=== PATIENT | female | born 1980 | race Caucasian/White ===

== ENCOUNTER 2022-04-23 14:46 | Outpatient (REF) | payer BC, SELFPAY ==
[2022-04-23 17:15] LABS: Hemoglobin A1C 5.6 % (<5.7)
[2022-04-23 17:17] LABS: ALT 35 U/L (14-59); AST 22 U/L (15-37); Albumin 3.5 g/dL (3.4-5.0); Alkaline Phosphatase 71 U/L (46-116); Anion Gap 8.5 mmol/L (3-11); BUN 15 mg/dL (7-18); Bilirubin, Total 0.5 mg/dL (0.2-1.0); CO2 26.5 mmol/L (21.0-32.0); CREATININE 0.9 mg/dL (0.55-1.02); Calcium 9.2 mg/dL (8.5-10.1); Calculated LDL 139 mg/dL (<100); Chloride 104 mmol/L (98-107); Cholesterol 237 mg/dL (<200); Estimated GFR 81.86 (mL/min/1.73m2); Glucose 100 mg/dL (74-106); HDL Cholesterol 70 mg/dL (40-60); Potassium 4.2 mmol/L (3.5-5.1); Sodium 139 mmol/L (136-145); Triglyceride 143 mg/dL (<150)
== END 2022-04-23 14:47 | disposition home or self-care (01) ==
LOC: NCHCN 14:46
PROVIDERS: Visit Provider Nurse Practitioner Family
DX: E28.2 Polycystic ovarian syndrome (principal); R73.9 Hyperglycemia, unspecified; Z13.220 Encounter for screening for lipoid disorders
CPT/HCPCS: 80053; 80061; 83036

== ENCOUNTER 2022-06-22 15:00 | Outpatient (REF) | payer BC, SELFPAY ==
[2022-06-22 15:38] LABS: ALT 62 U/L (14-59); AST 33 U/L (15-37); Albumin 3.7 g/dL (3.4-5.0); Alkaline Phosphatase 52 U/L (46-116); Anion Gap 11.5 mmol/L (3-11); BUN 18 mg/dL (7-18); Bilirubin, Total 0.8 mg/dL (0.2-1.0); CO2 22.5 mmol/L (21.0-32.0); CREATININE 0.9 mg/dL (0.55-1.02); Calcium 9.4 mg/dL (8.5-10.1); Chloride 100 mmol/L (98-107); Estimated GFR 81.86 (mL/min/1.73m2); Glucose 88 mg/dL (74-106); Sodium 134 mmol/L (136-145); Total Protein 7.4 g/dL (6.4-8.2)
[2022-06-22 16:04] LABS: Hemoglobin A1C 5.5 % (<5.7)
== END 2022-06-22 15:01 | disposition home or self-care (01) ==
LOC: NCHCN 15:00
PROVIDERS: Visit Provider Nurse Practitioner Family
DX: R73.01 Impaired fasting glucose (principal)
CPT/HCPCS: 80053; 83036

== ENCOUNTER 2022-09-21 14:56 | Outpatient (REF) | payer OTHER, SELFPAY ==
[2022-09-21 15:40] LABS: Anion Gap 10.2 mmol/L (3-11); BUN 9 mg/dL (7-18); CO2 23.8 mmol/L (21.0-32.0); Calcium 9.3 mg/dL (8.5-10.1); Chloride 103 mmol/L (98-107); Estimated GFR 72.13 (mL/min/1.73m2); Glucose 90 mg/dL (74-106); Potassium 4.1 mmol/L (3.5-5.1); Sodium 137 mmol/L (136-145)
[2022-09-21 15:47] LABS: Hemoglobin A1C 5.1 % (<5.7)
== END 2022-09-21 14:57 | disposition home or self-care (01) ==
LOC: NCHCN 14:56
PROVIDERS: Visit Provider Nurse Practitioner Family
DX: E88.81 Metabolic syndrome and other insulin resistance (principal)
CPT/HCPCS: 80048; 83036

== ENCOUNTER 2023-03-22 14:29 | Outpatient (REF) | payer OTHER, SELFPAY ==
[2023-03-22 19:44] LABS: Hemoglobin A1C 5.1 % (<5.7)
[2023-03-22 19:47] LABS: ALT 25 U/L (14-59); AST 19 U/L (15-37); Albumin 3.6 g/dL (3.4-5.0); Alkaline Phosphatase 58 U/L (46-116); Anion Gap 10.9 mmol/L (3-11); BUN 9 mg/dL (7-18); Bilirubin, Total 0.9 mg/dL (0.2-1.0); CO2 24.1 mmol/L (21.0-32.0); CREATININE 0.9 mg/dL (0.55-1.02); Calcium 9.3 mg/dL (8.5-10.1); Chloride 103 mmol/L (98-107); Estimated GFR 81.35 (mL/min/1.73m2); Glucose 85 mg/dL (74-106); Potassium 4.1 mmol/L (3.5-5.1); Sodium 138 mmol/L (136-145); TSH (W/Ref FT4) 1.88 uIU/mL (0.36-3.74); Total Protein 7.1 g/dL (6.4-8.2)
== END 2023-03-22 14:30 | disposition home or self-care (01) ==
LOC: NCHCN 14:29
PROVIDERS: Visit Provider Nurse Practitioner Family
DX: E88.81 Metabolic syndrome and other insulin resistance (principal); R73.01 Impaired fasting glucose; R94.5 Abnormal results of liver function studies; E78.00 Pure hypercholesterolemia, unspecified
CPT/HCPCS: 80053; 83036; 84443

== ENCOUNTER 2023-05-31 16:14 | Outpatient (REF) | payer OTHER, SELFPAY ==
[2023-05-31 15:09] LABS: HCT 40.5 % (36.0-46.0); HGB 13.6 g/dL (11.2-15.7); MCH 29.8 pg (27.0-33.0); MCHC 33.6 % (32.0-36.0); MCV 89 fL (80-95); MPV 10.8 fL (8.0-11.0); Platelet Count 293 10^3/uL (130-400); RBC 4.56 10^6/uL (3.93-5.22); RDW 12.2 % (11.7-14.6); WBC 6.37 10^3/uL (4.4-10.8)
[2023-05-31 15:28] LABS: Anion Gap 9.5 mmol/L (3-11); BUN 12 mg/dL (7-18); CO2 25.5 mmol/L (21.0-32.0); CREATININE 0.8 mg/dL (0.55-1.02); Calcium 9.4 mg/dL (8.5-10.1); Chloride 104 mmol/L (98-107); Ferritin 143 ng/mL (8-252); Glucose 86 mg/dL (74-106); Potassium 4.5 mmol/L (3.5-5.1); Sodium 139 mmol/L (136-145)
[2023-05-31 15:46] LABS: Iron 108 ug/dL (50-170); Total Iron Binding Capacity 363 ug/dL (250-450); Transferrin Sat 30 % (15-50)
[2023-06-11 10:57] LABS: Testosterone, Free 0.14 ng/dL (<0.13-0.98); Testosterone, Total 18 ng/dL (8-60)
== END 2023-05-31 16:15 | disposition home or self-care (01) ==
LOC: NCHCN 16:14
PROVIDERS: Visit Provider Nurse Practitioner Family
DX: E28.2 Polycystic ovarian syndrome (principal); I95.9 Hypotension, unspecified
CPT/HCPCS: 80048; 84402; 84403; 85027; 82728; 83540; 83550

== ENCOUNTER 2023-07-19 11:14 | Outpatient (REF) | payer OTHER, SELFPAY ==
--- NOTE | 2023-07-19 11:00 | PAPFT_PTH ---
PATIENT: Alexis Booth LOC: [facility] U#:[id number] AGE/SX: 43/F ROOM: RE07/19/[address]: Ya Sumner MD : 1980 BED: DIS: 07/19/2023 SPEC #: [id number] RECD: 07/19/23 12:53 STATUS: JUANITA REQ #: [id number] ALLYSON: 07/19/23 11:[address]: Ya Sumner DEPT: [facility] Cytology RECD BY: Jovanna Jack ENTERED: 07/19/23 12:53 SP TYPE: PAPFT OTHR DR: CHATA DOSHI Tissues: 1 - CX/ENDOCX FOR PAP SMEARS Procedures: PAP THIN PREP/UVM Screening HPV DNA PROBE Comments: [id number]
== END 2023-07-19 11:15 | disposition home or self-care (01) ==
LOC: LBN 11:14
PROVIDERS: PCP Nurse Practitioner Family; Visit Provider Obstetrics & Gynecology
DX: Z12.4 Encounter for screening for malignant neoplasm of cervix (principal)
CPT/HCPCS: 88142; 87624

== ENCOUNTER → 2023-09-16 01:18 | Outpatient (CLI) | payer OTHER, SELFPAY ==
--- OUTSIDE RECORDS SUMMARY | 2023-09-16 01:20 | XMS_ITS | Patient Health Record ---
Author Name Unknown [facility] Address [address] [place] [address] Support Name Relationship Address Phone OLENA WINTER Emergency Contact [address] [place] [address] REASON FOR REFERRAL No Information SOCIAL HISTORY Tobacco Use: Social History Observation Description Date Smoking Status WARNING: Information temporarily unavailable Sex Assigned At : Social History Observation Description Sex Assigned At Unknown SMOKING Question Answer Notes Are you a: nonsmoker PLAN OF TREATMENT No Information Insurance Providers Payer Name Payer Address Payer Phone Subscriber Number Group Number Insured Name Patient Relationship to Insured Coverage Start Date Coverage End Date [facility] [address] [place] [address] [id number] WENDY WINTER Self - patient is the insured
--- NOTE | 2023-09-16 08:45 | DI.MAMMO_ITS ---
Exam(s) MAMMO SCREENING EXAM: MAMMO SCREENING CLINICAL HISTORY: screening, Z12.31 TECHNIQUE: Mammograms were interpreted according to the usual protocol including computer analysis w [employer] CAD system, tomosynthesis and C-view imaging. COMPARISON: None. Baseline examination. FINDINGS: The breasts are composed of heterogeneously dense fibroglandular densities, Breast Density category C . No suspicious masses or suspicious microcalcifications are seen. No skin thickening or abnormal axillary lymph nodes are seen. IMPRESSION: BI-RADS Category 1, Negative mammogram. Yearly screening mammography is recommended. Breast Density Category C, heterogeneously Dense. The mammogram demonstrates the patient's breast tissue is dense. Dense breast tissue is very common a nd is not abnormal but dense breast tissue can make it harder to find cancer on a mammogram. Also, de nse breast tissue may increase breast cancer risk. This information about the result of the mammogram report was provided to the patient to raise their awareness. Use this report when you speak with the patient about their risks for breast cancer, which includes their family history. At that time, you may recommend additional screening tests (Ultrasound or MRI) as they might be useful based on their r isk. A negative radiographic report should not delay biopsy if a dominant or clinically suspicious mass is present. Up to ten percent of cancers are not identified on mammography. A negative report may reinforce clinical impression. Adenosis and dense breasts may obscure an underlying neoplasm. False positive reports average 6 to 10%.
== END ==
PROVIDERS: PCP Nurse Practitioner Family; Visit Provider Obstetrics & Gynecology
DX: Z12.31 Encounter for screening mammogram for malignant neoplasm of breast (principal)
CPT/HCPCS: 77063; 77067

== ENCOUNTER 2024-02-07 11:14 | Outpatient (REF) | payer OTHER, SELFPAY ==
--- OUTSIDE RECORDS SUMMARY | 2024-02-07 11:16 | XMS_ITS | Patient Health Record ---
Author Name Unknown [facility] Address [address] [place] [address] Support Name Relationship Address Phone OLENA WINTER Emergency Contact [address] [place] [address] REASON FOR REFERRAL No Information PLAN OF TREATMENT No Information Insurance Providers Payer Name Payer Address Payer Phone Subscriber Number Group Number Insured Name Patient Relationship to Insured Coverage Start Date Coverage End Date [facility] [address] [place] [address] [id number] WENDY WINTER Self - patient is the insured
[2024-02-07 14:49] LABS: Abs Immature Grans 0.01 10^3/uL (0.0-0.06); Absolute Basophil Count 0.06 10^3/uL (0.0-0.2); Absolute Eosinophil Count 0.28 10^3/uL (0.0-0.7); Absolute Lymphocyte Count 2.41 10^3/uL (1.2-3.4); Absolute Monocyte Count 0.42 10^3/uL (0.1-0.8); Absolute Neutrophil Count 3.19 10^3/uL (1.2-6.7); Basophils % 0.9 %; Eosinophils % 4.4 %; HCT 39.6 % (36.0-46.0); HGB 13.5 g/dL (11.2-15.7); Immature Grans % 0.2 %; Lymphocytes % 37.8 %; MCH 30.5 pg (27.0-33.0); MCHC 34.1 % (32.0-36.0); MCV 90 fL (80-95); MPV 10.7 fL (8.0-11.0); Monocytes % 6.6 %; Neutrophils % 50.1 %; Platelet Count 242 10^3/uL (130-400); RBC 4.42 10^6/uL (3.93-5.22); RDW 12.2 % (11.7-14.6); RDW-SD 39.8 fL; WBC 6.37 10^3/uL (4.4-10.8)
[2024-02-07 15:04] LABS: Bilirubin Negative (Negative); Blood Negative (Negative); Clarity Clear (Clear); Glucose Negative (Negative); Ketones Negative (Negative); Leukocyte Esterase Negative (Negative); Nitrite Negative (Negative); Urobilinogen 0.2 mg/dL (Up to 0.2); pH 6.5 (5-8)
[2024-02-07 15:21] LABS: ALT 23 U/L (14-59); AST 19 U/L (15-37); Albumin 3.4 g/dL (3.4-5.0); Alkaline Phosphatase 45 U/L (46-116); Anion Gap 5.6 mmol/L (3-11); BUN 9 mg/dL (7-18); Bilirubin, Total 0.77 mg/dL (0.2-1.0); CO2 25.4 mmol/L (21.0-32.0); CREATININE 0.9 mg/dL (0.55-1.02); Calcium 8.5 mg/dL (8.5-10.1); Chloride 107 mmol/L (98-107); Estimated GFR 80.84 (mL/min/1.73m2); Glucose 88 mg/dL (74-106); Lipase 38 U/L (16-77); Potassium 4.2 mmol/L (3.5-5.1); Sodium 138 mmol/L (136-145); Total Protein 6.7 g/dL (6.4-8.2)
== END 2024-02-07 11:15 | disposition home or self-care (01) ==
LOC: NCHCN 11:14
PROVIDERS: PCP Nurse Practitioner Family; Visit Provider Nurse Practitioner Family
DX: R10.12 Left upper quadrant pain (principal); R10.32 Left lower quadrant pain
CPT/HCPCS: 80053; 83690; 81003; 85025

== ENCOUNTER 2025-02-18 08:46 | Emergency (ER) | payer OTHER, SELFPAY ==
[2025-02-18 08:55] VITALS: BP 117/59; PULSE 78; RESP 16; TEMP 36.6; O2SAT 100
[2025-02-18 09:15] LABS: Glucose Negative (Negative)
--- NOTE | 2025-02-18 09:15 | DI.CT_ITS ---
Exam(s) CT RENAL COLIC WO EXAM: CT RENAL COLIC WO CLINICAL HISTORY: left flank pain. TECHNIQUE: Imaging Protocol: Axial computed tomography images with coronal and sagittal reformatted images were created and reviewed. COMPARISON: No exams were available for comparison FINDINGS: ABDOMEN: Lung Bases: Normal where visualized. Liver: Normal density. No measurable mass. Gallbladder and biliary tract: There is a 2.3 cm gallstone. There is no biliary ductal dilatation. Pancreas: Normal density, no abnormal calcifications or inflammatory process. Spleen: Normal. Kidneys: Normal size, contour and axis.No nephrolithiasis or ureterolithiasis is identified. There is mild dilatation seen in the proximal left ureter. Mild inflammation is seen around the left kidney and ureter. This may represent a recently passed stone. Infection cannot be entirely excluded. No masses seen. Adrenal glands: No mass is seen. Lymph nodes: Within normal limits. Abdominal Aorta: Abdominal portion non-dilated. PELVIS: Bladder:Symmetric distention, no gross wall thickening. Bowel: No obstruction or bowel wall thickening. Appendix is unremarkable. Peritoneal cavity: There is a trace amount of fluid in the cul-de-sac which may be physiologic. No free air. Reproductive organs: Unremarkable as visualized. Bones: Within normal limits. Soft Tissues: Within normal limits. IMPRESSION: 1. No evidence of nephrolithiasis or ureterolithiasis. 2. Mild dilatation of the proximal left ureter. Mild inflammatory stranding seen around the left kidney and ureter. This may represent a recently passed stone. Infection cannot be entirely excluded. Please correlate clinically. 3. Cholelithiasis. RADIATION DOSE DELIVERED: 361.82mGy.cm Total DLP DATA REPOSITORY: All CT scans at this facility are submitted to the National Radiology Data Registry (NRDR) Dose Index Registry (DIR) with the [employer] (ACR). RADIATION OPTIMIZATION: All CT scans at this facility use at least one of these dose optimization techniques: automated exposure control; mA and/or kV adjustment per patient size (includes targeted exams where dose is matched to clinical indication); or iterative reconstruction.
[2025-02-18 09:28] LABS: C & S Indicated? Yes; RBC 0-2 HPF (0-2); WBC >50 HPF (0-5)
--- NOTE | 2025-02-18 10:01 | W.ED.GENAD ---
Discharge Plan Disposition Patient Disposition: Home Condition: Stable Discharge Details Clinical Impression: Acute pyelonephritis, Cholelithiasis Primary Care Provider: Keri Ulloa ED Provider: Antwan Campos Home Meds and New Rx's Prescriptions: New cefpodoxime 200 mg tablet 200 mg PO BID Qty: 27 0RF Rx Instructions: must administer with a meal/food Continued bupropion HCl 150 mg tablet extended release 24 hr 150 mg PO QAM desogestrel-ethinyl estradiol [Enskyce] 0.15-0.03 mg tablet 1 tab PO DAILY Mounjaro 5 mg/0.5 mL pen injector 5 mg subcut QWEEK naltrexone 50 mg tablet 50 mg PO DAILY Discontinued sulfamethoxazole-trimethoprim 400-80 mg tablet 1 tab PO BID Patient Comments: TAKE 1 TABLET BY MOUTH EVERY 12 HOURS FOR 5 DAYS Discharge Instructions Instructions: Urinary Tract Infection, Adult ED, Gallstones ED Additional Instructions: Please take full course of antibiotic as prescribed. Please drink plenty of fluids to stay hydrated and allow for plenty of rest. Please follow-up with your primary care physician. Please follow-up with general surgery regarding gallstones. Return to the emergency department immediately for any worsening or new concerning symptoms. Referrals: Lillie Tsai MD [ [facility] STAFF PHYSICIAN, Surgery] Keri Ulloa MD [Primary Care Provider, Medicine] Discharge Data Discharge Date/Time-TO BE ENTERED AT DEPARTURE: 02/18/25 11:24 HPI General Mode of arrival: ambulatory. Date/Time Provider Initiated Documentation: 02/18/25 08:53. Limitations to Documentation: no limitations. Information obtained by: patient. HPI Narrative: HISTORY OF PRESENT ILLNESS Female with history of kidney stones and pyelonephritis presenting with left flank pain. Symptoms of UTI began on 01/29/2025: cloudy, foul-smelling urine, painful urination. Urine test showed protein, leukocytes, blood. Prescribed antibiotic nitrofurantoin for 7 days, condition improved. Recurrence of symptoms over the weekend: stinky, fizzy urine, pain. Subsequent urine test showed leukocytes, no bacteria or protein. Started on Bactrim, taken 4 doses. Reports pressury feeling in front radiating to left, pain with deep breaths, nausea, dry heaving. Pain intensifies after urination. Tylenol and ibuprofen ineffective, took 600 mg ibuprofen this morning. No other medical problems. Past surgeries: 2 C-sections, tonsillectomy, lithotripsy. No vaginal discharge or bleeding. Current medications: bupropion 150 mg daily, naltrexone 25 mg, control, Mounjaro or Zepbound. Related Data Home Medications ?Medication ?Instructions ?Recorded ?Confirmed bupropion HCl 150 mg 24 hr tablet, 150 mg PO QAM 07/19/23 02/18/25 extended release desogestrel 0.15 mg-ethinyl 1 tab PO DAILY 07/19/23 02/18/25 estradiol 0.03 mg tablet (Enskyce) tirzepatide 5 mg/0.5 mL 5 mg subcut QWEEK 07/19/23 02/18/25 subcutaneous pen injector (Mounjaro) cefpodoxime 200 mg tablet 200 mg PO BID #27 tabs 02/18/25 naltrexone 50 mg tablet 50 mg PO DAILY 02/18/25 02/18/25 Previous Rx's ?Medication ?Instructions ?Recorded cefpodoxime 200 mg tablet 200 mg PO BID #27 tabs 02/18/25 Allergies Allergy/AdvReac Type Severity Reaction Status Date / Time amoxicillin Allergy Unknown rash Unverified 02/18/25 08:58 General Stated Complaint: FlankPain SHAKA: 3 Review of Systems All systems reviewed & are unremarkable except as noted in HPI and below Genitourinary Genitourinary: Reports as per HPI Exam Const General: cooperative and no acute distress [facility] Mouth: moist mucous membranes Eyes Conjunctivae: normal conjunctivae Sclera: normal sclerae Resp Auscultation: clear to auscultation bilaterally, no rales, no rhonchi and no wheezes Cardio Rate: regular rate and not tachycardic Rhythm: regular rhythm GI Palpation: soft, not firm, no guarding, no masses, not rigid and tender in the LUQ (flank) Skin General skin exam: no rashes or lesions noted Neuro General: patient alert, patient awake and tone normal Extrem General: no edema Course Vital Signs Vital signs: Vital Signs Temperature 36.6 C 02/18/25 08:55 Pulse 78 02/18/25 08:55 Respiratory Rate 16 02/18/25 08:55 Blood Pressure 117/59 L 02/18/25 08:55 Pulse Oximetry 100 02/18/25 08:55 Temperature 36.6 C 02/18/25 08:55 Temperature Source Tympanic 02/18/25 08:55 Pulse 78 02/18/25 08:55 Respiratory Rate 16 02/18/25 08:55 Blood Pressure 117/59 L 02/18/25 08:55 Blood Pressure Position Sitting 02/18/25 08:55 Pulse Oximetry 100 02/18/25 08:55 Oxygen Delivery Method Room Air 02/18/25 08:55 Oxygen Flow Rate 0 02/18/25 08:55 Pain Level 4 02/18/25 08:55 Lab/Test Results Lab/Test Results: 02/18/25 08:58 Urine - Reflex from Ua Urine Culture - Pending Laboratory Tests Range/Units 02/18/25 08:58 Urine Color (Yellow) Yellow Urine Clarity (Clear) Sl Cloudy Urine pH (5-8) 6.0 Ur Specific [place] (1.005-1.025) 1.015 Urine Protein (Neg-Trace) mg/dL 30 H Urine Ketones (Negative) mg/dL Negative Urine Blood (Negative) Small H Urine Nitrite (Negative) Positive H Urine Bilirubin (Negative) Negative Urine Urobilinogen (Up to 0.2) mg/dL 0.2 Ur Leukocyte Esterase (Negative) Moderate H Urine RBC (0-2) HPF 0-2 Urine WBC (0-5) HPF >50 H Ur Epithelial Cells (Negative) HPF Few Urine Crystals (Negative) HPF Negative Urine Bacteria (Negative) HPF Moderate Urine Casts (Negative) LPF Negative Urine Mucus (Negative) Negative Ur Culture Indicated? Yes Urine Glucose (Negative) mg/dL Negative POC- Test(urine) Negative Medical Decision Making ASSESSMENT AND PLAN Initial Assessment: 45-year-old female with history of remote nephrolithiasis, here with recurrent urinary symptoms after being treated initially with nitrofurantoin a couple weeks ago and now on Bactrim for few days with persistent symptoms. Concern for complicated UTI and pyelonephritis. Considered septic stone. Patient is hemodynamically stable and afebrile. No peritoneal findings on exam. Differential Diagnosis: - UTI: Initial infection possibly incompletely treated or recurred. Blood work and repeat urine test to be conducted. - Concern for renal stone and septic stone: History of stones, pain radiating to front, worsens after urination. CT scan without contrast to be ordered. ED Course: - Repeat urine test conducted -UA consistent with urinary tract infection, greater than 50 WBCs, positive nitrite. - CT scan interpreted by radiology:1. No evidence of nephrolithiasis or ureterolithiasis. 2. Mild dilatation of the proximal left ureter. Mild inflammatory stranding seen around the left kidney and ureter. This may represent a recently passed stone. Infection cannot be entirely excluded. Please correlate clinically. 3. Cholelithiasis. - Patient was able to obtain urine culture sensitivities from 01/29/2025 which grew 10-50,000 colonies of staph saprophyticus-sensitivities not available. - Given infection refractory to Macrobid and now Bactrim, plan to initiate treatment with ceftriaxone 1 g IV and then continue cefpodoxime for total of 14 days. There was a urine culture performed yesterday at [facility] and results not yet available. Patient will follow-up with primary care physician to review these results and need to tailor antibiotics as appropriate. - All results were discussed with the patient. She does note that she has intermittent GI distress postprandially and fairly regularly. I will refer her to general surgery for discussion regarding elective cholecystectomy. Final Assessment: 45-year-old female with acute pyelonephritis refractory to Macrobid and now Bactrim. Clinical Impression: - Acute pyelonephritis - Cholelithiasis This document was written with the assistance of EVELYN Redd. The patient consented to its use. PFSH All Active Problems (Updated 02/18/25 @ 10:50 by Antwan Campos MD) Cholelithiasis (Acute) Acute pyelonephritis (Acute) Medical History History of PCOS Stopped finasteride and spironolactone in Jun 2023 delivery delivered Depression Asthma Surgical History H/O lithotripsy History of tonsillectomy H/O dilation and curettage Family History Other Blood clotting disorder Diabetes Heart disease Stroke Social History Smoking/Tobacco Use Status: Never Smoking risk assessment performed?: Yes Alcohol Intake: current Alcohol Intake frequency: holidays/special occasions only Drug use: Never Substance use type: does not use Do you feel safe at home: Yes Do you feel safe in your relationship?: Yes Female Reproductive History Menstrual Age of Menarche: 13 History History 4 Para 2 Hx # Term Pregnancies Multiple births Hx # Pregnancies Ectopic pregnancies AB induced Hx Number of Living Children AB spontaneous 2 Past Pregnancies Del. Date GA/Weeks # Preg Succ Route Wgt Sex Labor Lgth Anesthesia Location [facility] 10/24/97 42 Yes 3855.535 g Male [facility] 05/19/13 40 Yes 3572.04 g Female [facility] Delivery Date: 10/24/97 Last Updated by: Jamila Smart Delivery Date: 05/19/13 Last Updated by: Jamila Ibarra
[2025-02-18] MEDS: cefTRIAXone 1 GM/50 ML BAG IVPB (10:51)
[2025-02-18 11:22] VITALS: BP 107/40; PULSE 79; RESP 12; O2SAT 98
--- NOTE | 2025-02-20 08:09 | NUR.NOTE ---
Accesed chart to get result of urine culture for antibiotics on discharge. Nursing Note:
--- NOTE | 2025-02-20 08:15 | W.ED.FU ---
Date of service: 02/20/25 Time of Service: 08:15 Follow Up Plan: Positive urine culture resulted 02/20/2025, this patient's UA is growing greater than 100,000 colonies of E. coli, resistant to ampicillin and Bactrim but sensitive to cephalosporins. Patient was discharged on cefpodoxime, no changes required to regimen. Deja Baptiset MD
== END 2025-02-18 11:24 | disposition home or self-care (01) ==
PROVIDERS: Emergency Provider Student in an Organized Health Care Education/Training Program; PCP Family Medicine
DX: K80.20 Calculus of gallbladder without cholecystitis without obstruction (principal); N10 Acute pyelonephritis; Z79.899 Other long term (current) drug therapy
CPT/HCPCS: 36415; 81025; 87077; 96374; 99284; 74176; 81003; 81015; 87086; 87186; J0696

== ENCOUNTER 2025-04-12 08:34 | Day surgery (SDC) | payer OTHER, SELFPAY ==
[2025-04-12] VITALS (53 sets, daily range): BP systolic 102–132; BP diastolic 53–92; PULSE 54–75; RESP 11–24; TEMP 36.1–37; O2SAT 97–100; BMI 25.7
--- NOTE | 2025-04-12 07:36 | W.PM.DSUDISC ---
Date of service: 04/12/25 Discharge Plan Disposition Patient Disposition: Home Discharge Details Attending Provider: Lillie Tsai Primary Care Provider: Keri Ulloa Recommendations for Follow Up Recommended tests to be ordered by follow up provider: Surgeon to follow up with patient in office Home Meds and New Rx's Prescriptions: New hydrocodone-acetaminophen 5-325 mg tablet 1 tab PO Q6H PRNQty: 10 0RF sulfamethoxazole-trimethoprim [Bactrim DS] 800-160 mg tablet 1 tab PO BID Qty: 10 0RF Continued bupropion HCl 150 mg tablet extended release 24 hr 150 mg PO QAM desogestrel-ethinyl estradiol [Enskyce] 0.15-0.03 mg tablet 1 tab PO DAILY Mounjaro 5 mg/0.5 mL pen injector 5 mg subcut QWEEK naltrexone 50 mg tablet 50 mg PO DAILY Discharge Instructions Additional Instructions: Shower in 48 hours. Wash gently over steri-strips with soapy hands, rinse, pat dry. Don't peel strips or submerge them under water. The longer they stay on, the nicer the scars will heal. Ok to walk, climb stairs, and resume normal activities of daily living. Do not lift/push/pull more than 20lb for 4 weeks. Diet as tolerated, allow your body to naturally make adjustments in the bile flow after surgery. Eat your normal diet. Loose stools may occur. We will discuss them at follow up if still present in 2 weeks. Call or return for fever or incisional problems. A small amount of bile spilled during gallbladder removal, so I have prescribed an antibiotic to take for 5 days to help prevent infection in your skin cuts from that bile. Take all five days as prescribed. Activity:: as above Shower/Bathe:: 48 hours Diet:: As Tolerated Discharge Orders Discharge Orders: Discharge Order (Routine); Ordered 04/12/25 Ordered By: Lillie Tsai DS: Diagnosis Discharge Diagnosis (1) Symptomatic cholelithiasis: Status: Acute
[2025-04-12] MEDS: Lactated Ringers 1,000 ML 80 ML IV (09:15)
--- NOTE | 2025-04-12 09:56 | W.ANESPRE ---
General Info Date of Service Date Performed: 04/12/25 Height: 5 ft 2.5 in Weight: 64.9 kg Body Mass Index (BMI): 25.7 Surgical Procedure: Operation Date: 04/12/25 09:55 Proposed Procedure Side Surgeon p Cholecystectomy Laparoscopic Lillie Tsai MD Actual Procedure Side Surgeon p Cholecystectomy Laparoscopic Not Applicable Lillie Tsai MD Pre-Op Diagnosis Post-Op Diagnosis Symptomatic cholelithiasis Meds Allergies and Home Medications Allergies Allergy/AdvReac Type Severity Reaction Status Date / Time amoxicillin Allergy Unknown rash Unverified 04/12/25 08:54 Home Medication ?Medication ?Instructions ?Recorded bupropion HCl 150 mg 24 hr tablet, 150 mg PO QAM 07/19/23 extended release desogestrel 0.15 mg-ethinyl 1 tab PO DAILY 07/19/23 estradiol 0.03 mg tablet (Enskyce) tirzepatide 5 mg/0.5 mL 5 mg subcut QWEEK 07/19/23 subcutaneous pen injector (Ronak) naltrexone 50 mg tablet 50 mg PO DAILY 02/18/25 hydrocodone 5 mg-acetaminophen 325 1 tab PO Q6H PRN #10 tabs 04/12/25 mg tablet Current Visit Medications: Current Medications Generic Name Dose Route Start Last Admin Trade Name Freq PRN Reason Stop Dose Admin Ringer's Solution 1,000 mls @ 80 mls/hr 04/12/25 06:00 04/12/25 09:15 IV 05/09/25 23:59 80 mls/hr INFUSION AISLINN Administration Cefazolin Sodium/Dextrose 2 gm in 50 mls @ 100 mls/hr 04/12/25 06:00 Ancef Duplex IVPB 05/09/25 23:59 PREOP AISLINN IV Miscellaneous Supplies 1 each 04/12/25 06:00 Iv Access IV 05/09/25 23:59 DIRECTED AISLINN Sodium Chloride 0 ml 04/12/25 06:00 Normal Saline Flush 10 Ml Syr IV 05/09/25 23:59 PRN PRN Sodium Chloride 0 ml 04/12/25 06:00 Normal Saline 10 Ml Vial IJ 05/09/25 23:59 DIRECTED PRN Sterile Water 0 ml 04/12/25 06:00 Water,Injection,Sterile 10 Ml Vial IJ 05/09/25 23:59 DIRECTED PRN PFSH Medical History Medical History History of PCOS Stopped finasteride and spironolactone in Jun 2023 delivery delivered Depression Asthma Surgical History Surgical History H/O lithotripsy History of tonsillectomy H/O dilation and curettage Tobacco Smoking/Tobacco Use Status: Never Passive smoking exposure: No Alcohol Alcohol Intake: current Alcohol intake frequency: holidays/special occasions only Substance Use Substance use: Never Substance use type: does not use Prental History History 4 Para 2 Hx # Term Pregnancies Multiple births Hx # Pregnancies Ectopic pregnancies AB induced Hx Number of Living Children AB spontaneous 2 Past Pregnancies Del. Date GA/Weeks # Preg Succ Route Wgt Sex Labor Lgth Anesthesia Location [facility] 10/24/97 42 Yes 3855.535 g Male [facility] 05/19/13 40 Yes 3572.04 g Female [facility] Delivery Date: 10/24/[birth year] Last Updated by: Jamila Smart Delivery Date: 05/19/13 Last Updated by: Jamila Ibarra Vital Signs and Lab Results Vital Signs Most Recent Vital Signs in EMR: Most Recent Vital Signs Temp Pulse Resp BP Pulse Ox 36.3 C L 58 L 16 111/58 L 98 04/12/25 08:48 04/12/25 08:48 04/12/25 08:48 04/12/25 08:48 04/12/25 08:48 Point of Care Results Point of Care Results: POC- Test(urine) Negative 04/12/25 09:55 Anesthesia Assessment and Plan Anesthesia History Personal History: No History of Anesthesia Complications Family History: No Family History of Anesthesia Complications Exercise Tolerance Exercise Tolerance: Metabolic Equivalents>4 Pertinent Negatives Pertinent Negatives: No Symptoms of GERD, No Major Cardiovascular Symptoms or Complaints and No History of CVA/TIA Cardiac & Pulmonary Exam Cardiac Exam: Normal S1/S2 Heart Sounds Pulmonary Exam: Clear Bilateral Breath Sounds Implantable Cardiac Device Does patient have a Pacemaker or an ICD?: No Airway Exam Known Difficult Airway: No Mallampati Class: 2 Mouth Opening: Normal (> 3cm) Thyromental Distance: Greater than 3 cm Neck Range of Motion: Full ROM Neck Circumference: Normal Teeth Condition: Normal Dentition ASA Classification ASA Score: ASA 2 Emergency Case?: No NPO Status NPO Status: NPO Clears >2 hours, Solids >8 hours Status Status: Negative HCG Anesthesia Plan Resuscitation Status: Full Code Anesthesia Technique: General Anesthesia Airway Planned: Endotracheal Tube Monitors Used: Standard Monitors
[2025-04-12] MEDS: ceFAZolin 2 GM/50 ML BAG IVPB (10:32)
[2025-04-12] MEDS: Bupivacaine 0.5% Pres-Free W/EPI 30 ML VIAL (10:50)
--- NOTE | 2025-04-12 11:25 | GB_PTH ---
PATIENT: Alexis Booth LOC: [facility] U#:[id number] AGE/SX: 45/F ROOM: RE04/12/[address]: Lillie Tsai MD : 1980 BED: DIS: 04/12/2025 SPEC #: [id number] RECD: 04/12/25 12:27 STATUS: JUANITA REQ #: [id number] ALLYSON: 04/12/25 11:[address]: Lillie Tsai DEPT: Surgical Specimen RECD BY: Jovanna Jack ENTERED: 04/12/25 12:28 SP TYPE: GB OTHR DR: Keri Ulloa Tissues: 1 - GALLBLADDER Procedures: GROSS AND MICRO LEVEL 3 Comments: [id number]
--- NOTE | 2025-04-12 11:41 | ROE_ITS ---
Operative Note Operative Note PRE-OP DIAGNOSIS: symptomatic cholelithiasis POST-OP DIAGNOSIS: same PROCEDURE: laparoscopic cholecystectomy SURGEON: Lillie Tsai REGIONAL VICE PRESIDENT SURGICAL SALES: Olegario Alfaro ANESTHESIA TYPE: Local By Surgeon and General LMA/ETT Refer to Anesthesia Record ESTIMATED BLOOD LOSS: 20 PATHOLOGY: other (gallbladder) COMPLICATIONS: None Findings: Bile spillage occurred during removal of gallbladder, contamination was limited and controlled. Procedure Description: Preoperative diagnosis: Symptomatic cholelithiasis Postoperative diagnosis: Symptomatic cholelithiasis Procedure: Laparoscopic cholecystectomy Surgeon: Lillie Tsai MD Dental Laboratory Technician Apprentice: VALERIANO Wesley Anesthesia: GETA + local EBL 20mL Specimen: Gallbladder Complications: None Procedure Description: This is a 45-year-old female who presented to the office with abdominal symptoms and gallstones. The evaluation yielded a diagnosis of symptomatic cholelithiasis. Cholecystectomy was indicated. We discussed the procedure risks, benefits, alternatives, and expectations. All of the patient's questions were answered to their satisfaction. Informed consent was obtained and the patient was transferred to the operating room. She was placed supine on the operating table. SCDs were placed and all pressure points were padded appropriately. General anesthesia was induced. The abdomen was clipped prepped and draped in the usual sterile fashion. Timeout was performed. Local anesthetic was infiltrated underneath the umbilicus. An incision was made in the skin and the incision carried down to the umbilical stalk using cautery. The umbilical stalk was elevated using a Sara clamp and the fascia cleared of its fatty tissues. An incision was made in the fascia, and a Marie clamp was used to enter the peritoneum. A finger was used to ensure no structures were adhered to the anterior abdominal wall. A Rodriguez trocar was introduced and the abdomen was insufflated to 15 mmHg. Initial laparoscopy confirmed no injury to the intra-abdominal structures. 3 additional 5 mm ports were placed in the upper abdomen under direct visualization. Local anesthetic was infiltrated at each port site. The patient's head was elevated and she was rotated toward the left. The gallbladder was elevated. The gallbladder dome was grasped and retracted cephalad. The infundibulum was grasped and retracted laterally and a dissection in Calot's triangle was pursued with a [place] dissector and a suction tool. 2 tubular structures were dissected free and skeletonized. A critical view was obtained and the gallbladder cystic duct and cystic artery were identified and confirmed. The cystic duct and cystic artery were clipped and transected with EndoShears. The gallbladder was then removed from the liver bed with cautery. Bile spillage occurred during this process. It was controlled and limited. Gallbladder was placed into an Endo Catch bag and removed from the abdomen through the umbilicus. The umbilical incision required extension to accomodate late stone removal. Stone fragments contaminated the removal process. All fragments were removed and incision washed and cleaned thoroughly. The liver bed was examined and hemostasis assured. The patient taken out of reverse Trendelenburg position. The 5 mm ports were removed and the abdomen was desufflated. The umbilical trocar was removed. The umbilical fascia was closed with an 0 Vicryl suture in a [id number] stitch. The remainder of the local anesthetic was infiltrated into the umbilical fascia. The incisions were all closed with interrupted 4-0 Monocryl sutures in subcuticular fashion. The incisions were all washed and dried and Steri-Strips applied. The patient tolerated the procedure well. She extubated in the operating room and transferred to the recovery room in stable condition. There were no complications Date of Procedure: 04/12/25
[2025-04-12] MEDS: fentaNYL 100 MCG/2 ML VIAL IVP ×2 (12:06→12:13)
[2025-04-12] MEDS: HYDROmorphone 2 MG/ML SYR IVP ×2 (12:22→12:32)
[2025-04-12] MEDS: oxyCODONE 5 MG TAB PO (13:33)
[2025-04-12] MEDS: Ketorolac 30 MG/ML VIAL IVP (13:43)
[2025-04-12] MEDS: Normal Saline Flush 10 ML SYR IV (13:43)
--- NOTE | 2025-04-12 14:19 | W.ANESPOSTOP ---
Postoperative Evaluation Date, Time and Location Date Performed: 04/12/25 Time Performed: 14:19 Patient Location: Day Surgery Unit Vital Signs Most Recent Imported Vital Signs: Most Recent Vital Signs Temp Pulse Resp BP Pulse Ox 36.9 C 62 16 104/70 97 04/12/25 13:47 04/12/25 13:47 04/12/25 13:47 04/12/25 13:47 04/12/25 13:47 Pain Score Most Recent Pain Score: Most Recent Pain Score Pain Level 5 04/12/25 13:47 Assessment Mental Status: Awake (Alert & Oriented to Patient Baseline) Airway and Respiratory Function: Patent airway with normal (patient baseline) respiratory exam Cardiovascular Function: Hemodynamically Stable Hydration Status: Adequately Hydrated Nausea & Vomiting: No Nausea or Vomiting Pain: Pain is tolerable per patient Peripheral Nerve Block: Patient did not receive a nerve block
== END 2025-04-12 14:33 | disposition home or self-care (01) ==
PROVIDERS: PCP Family Medicine; Visit Provider Surgery
PROC: 0FT44ZZ Resection of Gallbladder, Percutaneous Endoscopic Approach (ICD-10-PCS; CPT 47562; principal; 2025-04-12 09:45)
DX: K80.10 Calculus of gallbladder with chronic cholecystitis without obstruction (principal)
CPT/HCPCS: 47562; 81025; 88304; J0131; J0690; J1100; J1171; J1885; J2003; J2250; J2405; J2704; J3010; J3475

== ENCOUNTER 2025-06-02 01:24 | Outpatient (CLI) | payer OTHER, SELFPAY ==
--- NOTE | 2025-06-02 | DI.MAMMO_ITS ---
Exam(s) MAMMO SCREENING EXAM: MAMMO SCREENING CLINICAL HISTORY: SCREENING,Z12.31. TECHNIQUE: Bilateral full field digital CC and MLO mammographic images were obtained with 3D tomosynthesis and utilizing computer aided detection (CAD). COMPARISON: Prior mammograms were reviewed. FINDINGS: There has been no significant change in the appearance and distribution of the fibroglandular tissue. There are no CAD designations There are no new spiculated masses nor malignant appearing microcalcification groups. There is no significant architectural distortion nor skin thickening-retraction. IMPRESSION: No radiographic evidence of malignancy. BI-RADS Category 1 - Negative Breast Density - Category C - The breast are heterogeneously dense, which may obscure small masses. Breast density Category C or D implies that the patient has dense breast tissue. Dense breast tissue can make it harder to find cancer on a mammogram. Dense breast tissue is also associated with an increased risk of breast cancer. This information about the result of the mammogram report was provided to the patient to raise their awareness. Use this report when you speak with the patient about their risks for breast cancer, which includes their family history. At that time, you may recommend additional screening tests (Ultrasound or MRI) as these tests may add significant information. A negative radiographic report should not delay biopsy if a dominant or clinically suspicious mass is present. Up to ten percent of cancers are not identified on mammography. A negative report may reinforce clinical impression. Adenosis and dense breasts may obscure an underlying neoplasm. False positive reports average 6 to 10%. Patient will receive a letter notifying them of these results.
== END 2025-06-02 01:44 ==
LOC: DI 01:24
PROVIDERS: PCP Family Medicine; Visit Provider Nurse Practitioner Family
DX: Z12.31 Encounter for screening mammogram for malignant neoplasm of breast (principal); R92.323 Mammographic fibroglandular density, bilateral breasts
CPT/HCPCS: 77063; 77067